=== PATIENT | male | born 1940 | race Caucasian/White ===

== ENCOUNTER 2018-08-13 10:47 | Emergency (ER) | payer SELFPAY | END 2018-08-13 14:04 | disposition home or self-care (01) | LOC: FTE 14:04 | DX: R05 Cough (principal) | CPT/HCPCS: 71045; 99283-25 ==

== ENCOUNTER 2018-08-30 12:46 | Emergency (ER) | payer OTHER, MEDICAID ==
[2018-08-30 14:35] LABS: ADD MAN DIFF? NO
[2018-08-30 14:39] LABS: BASOPHILS % 0.4 % (0.0-2.0); EOSINOPHILS % 0.4 % (0.0-7.0); HEMATOCRIT 44.7 % (42.0-52.0); HEMOGLOBIN 14.7 g/dl (14.0-18.0); LYMPHOCYTES # 2.1 10^3/ul (0.8-2.9); MEAN CORPUSCULAR HEMOGLOBIN 30.1 pg (29.0-33.0); MEAN CORPUSCULAR HGB CONC 32.9 g/dl (32.0-37.0); MEAN CORPUSCULAR VOLUME 91.4 fl (82.0-101.0); MEAN PLATELET VOLUME 11.1 fl (7.4-10.4); MONOCYTE # 0.6 10^3/ul (0.3-0.9); NEUTROPHIL # 5.7 10^3/ul (1.6-7.5); PLATELET COUNT 229 10^3/UL (140-415); RED BLOOD COUNT 4.89 10^6/ul (4.70-6.10); RED CELL DISTRIBUTION WIDTH 13.1 % (11.5-14.5)
[2018-08-30 14:39] LABS: WHITE BLOOD COUNT 8.5 10^3/ul (4.8-10.8)
[2018-08-30] MEDS: LORAZEPAM 2 MG INJ IV (14:46)
[2018-08-30] MEDS: SOD CHLORIDE 0.9% 1,000 ML IV (14:47)
[2018-08-30 14:57] LABS: ALANINE AMINOTRANSFERASE 43 IU/L (13-69); ALBUMIN 4.9 g/dl (3.3-4.9); ALBUMIN/GLOBULIN RATIO 1.19; ALKALINE PHOSPHATASE 117 IU/L (42-121); ANION GAP 14 (5-13); ASPARTATE AMINO TRANSFERASE 41 IU/L (15-46); BILIRUBIN,INDIRECT 0.3 mg/dl (0-1.1); BILIRUBIN,TOTAL 0.3 mg/dl (0.2-1.3); BLOOD UREA NITROGEN 33 mg/dl (7-20); CARBON DIOXIDE 24 mmol/L (21-31); CHLORIDE 110 mmol/L (97-110); CREATININE 1.02 mg/dl (0.61-1.24); POTASSIUM 4.5 mmol/L (3.5-5.1); SODIUM 148 mmol/L (135-144)
[2018-08-30 15:07] LABS: ACETAMINOPHEN < 10.0 ug/ml (10.0-30.0); ETHANOL < 10.0 mg/dl (0-0); GLUCOSE 508 mg/dl (70-220); SALICYLATE < 1.0 mg/dl (5.0-30.0)
[2018-08-30 15:08] LABS: TROPONIN-I 0.012 ng/ml (0.000-0.120)
[2018-08-30 15:15] LABS: INR 1.03; PROTIME 13.6 Sec (11.9-14.9); PT RATIO 1.1
[2018-08-30 15:19] LABS: ADD UMIC NO; UR ASCORBIC ACID NEGATIVE (NEGATIVE); UR BILIRUBIN (Dip) NEGATIVE (NEGATIVE); UR BLOOD (Dip) NEGATIVE (NEGATIVE); UR CLARITY CLEAR (CLEAR); UR COLOR YELLOW (YELLOW); UR GLUCOSE (Dip) 3+ mg/dL (NEGATIVE); UR KETONES (Dip) 1+ mg/dL (NEGATIVE); UR LEUKOCYTE ESTERASE (Dip) NEGATIVE Leu/ul (NEGATIVE); UR NITRITE (Dip) NEGATIVE (NEGATIVE); UR SPECIFIC GRAVITY (Dip) 1.031 (1.003-1.030); UR TOTAL PROTEIN (Dip) NEGATIVE (NEGATIVE); UR UROBILINOGEN (Dip) NEGATIVE (NEGATIVE)
[2018-08-30 15:34] LABS: AMPHETAMINE/METHAMPHETAMINE Negative (NEGATIVE); BARBITURATES Negative (NEGATIVE); BENZODIAZEPINES Negative (NEGATIVE); CANNABINOIDS Negative (NEGATIVE); COCAINE Negative (NEGATIVE); OPIATES Negative (NEGATIVE)
[2018-08-30 15:44] LABS: PHOSPHORUS 5.9 mg/dl (2.5-4.9)
[2018-08-30 15:44] LABS: MAGNESIUM 2.3 mg/dl (1.7-2.5)
[2018-08-30] MEDS: SOD CHLORIDE 0.9% 2,000 ML IV (15:47)
[2018-08-30] MEDS: INSULIN LISPRO 100 UNIT/ML VIAL SC (15:49)
== END 2018-08-30 17:12 | disposition home or self-care (01) ==
LOC: E/R 12:46
DX: E11.65 Type 2 diabetes mellitus with hyperglycemia (principal); I10 Essential (primary) hypertension; Z79.84 Long term (current) use of oral hypoglycemic drugs
CPT/HCPCS: 70450; 71045; 80053; 80307; 81003; 82962; 83605; 83735; 84100; 84484; 85025; 85610; 87040; 87086; 87400; 93005; 96361; 96372; 96374; 99285-25

== ENCOUNTER 2018-09-04 17:58 | Emergency (ER) | payer OTHER, MEDICAID | END 2018-09-04 21:10 | disposition home or self-care (01) | LOC: FTE 17:58 | DX: M17.0 Bilateral primary osteoarthritis of knee (principal); E11.9 Type 2 diabetes mellitus without complications; I10 Essential (primary) hypertension; Z79.84 Long term (current) use of oral hypoglycemic drugs | CPT/HCPCS: 73562; 73562-50; 99284-25 ==